=== PATIENT | male | born 1950 | race Caucasian/White ===

== ENCOUNTER 2018-11-20 08:24 | Outpatient (CLI) | payer MEDICARE ==
--- NOTE | 2018-11-20 09:29 | MRI ---
MRI Lumbar Spine Noncontrast: HISTORY: Low back pain after lifting weights 5 weeks ago. COMPARISON: None FINDINGS: The visualized retroperitoneal structures demonstrate a normal appearance. Conus medullaris is normal in morphology and terminates at the L1-2 level. A few scattered Schmorl's nodes are seen within the lumbar spine. L1-2: There is no disc bulge or disc herniation. Central spinal canal and neural foramina are patent. Minimal endplate degenerative changes are present involving the inferior endplate L1 vertebral body. L2-3: There is no disc bulge or disc herniation. Central spinal canal and neural foramina are patent. L3-4: There is no disc bulge or disc herniation. Central spinal canal and neural foramina are patent. L4-5: There is mild disc osteophyte complex without significant narrowing of the central spinal canal . There is slight flattening the anterior aspect of the thecal sac. Neural foramina are patent. Mild facet degenerative changes are noted. L5-S1: There is a mild central/left paracentral disc protrusion which does result in mild flattening of the anterior aspect of the thecal sac with encroachment on the traversing left S1 nerve root. The neural foramina are patent. Facet degenerative changes are present. IMPRESSION: Minimal disc degenerative changes in the lower lumbar spine.
== END 2018-11-20 08:25 | disposition home or self-care (01) ==
LOC: SCSMRI 08:24
PROVIDERS: ATTEND Surgery
DX: M54.5 Low back pain (principal); M51.36 Other intervertebral disc degeneration, lumbar region
CPT/HCPCS: 72148

== ENCOUNTER 2018-12-05 10:07 | Day surgery (SDC) | payer MEDICARE ==
[2018-12-04 11:01] VITALS: BMI 29.4
[2018-12-05] MEDS ORDERED: Bupivacaine/Epinephrine 0.25% 30 ML VIAL ONE (10:41)
[2018-12-05] MEDS ORDERED: Lidocaine 2% Jelly 5 ML TUBE ONE (10:41)
[2018-12-05] MEDS ORDERED: Fentanyl 100 MCG/2 ML VIAL ONE (10:41)
[2018-12-05] MEDS ORDERED: Midazolam HCl 2 mg/2 ml Vial ONE (10:42)
--- NOTE | 2018-12-05 12:36 | OP ---
DATE OF PROCEDURE: 12/05/2018 PREOPERATIVE DIAGNOSIS: Umbilical hernia. PROCEDURE PERFORMED: Umbilical hernia repair. INDICATIONS: A 68-year-old male, who has an enlarging bulge in his umbilicus causing pain. FINDINGS: Less than 1 cm defect closed primarily without mesh. DESCRIPTION OF PROCEDURE: After informed consent was obtained, the patient was taken to the operating room and given general mask anesthesia placed in the supine position. Abdomen was prepped and draped in usual fashion. Local anesthesia infiltrated subcutaneously and deep. A subumbilical incision was performed. Subcu divided sharply. The hernia sac was dissected from overlying skin sharply with Metzenbaum scissors, then dissected out circumferentially. The hernia sac removed. The contents were reduced, after hemostasis achieved. The defect was approximately 1 cm, was closed with interrupted [id number] of 0 Ethibond suture, then the skin was reapproximated to the fascia with interrupted 3-0 Vicryl suture to restore umbilical contour. Then, the skin closed with interrupted 4-0 Rapide. Steri-Strips applied. Sterile bandage applied. The patient tolerated the procedure well, transferred to Recovery in good condition. Sponge and needle count verified correct x2. Job ID: [id number]
[2018-12-05] MEDS ORDERED: HYDROcodone/Acetaminophen 5/325 mg Tablet ONE (12:51)
--- NOTE | 2018-12-08 16:47 | EKG ---
Test Reason : PREOP Blood Pressure : / mmHG Vent. Rate : 062 BPM Atrial Rate : 062 BPM P-R Int : 162 ms QRS Dur : 088 ms QT Int : 422 ms P-R-T Axes : 030 067 032 degrees QTc Int : 428 ms Normal sinus rhythm ST elevation, consider early repolarization Otherwise normal ECG Confirmed by HALLIE HAYWARD ([id number]) on 12/08/2018 4:47:14 PM Referred By: NELIDA Confirmed By:HALLIE HAYWARD
== END 2018-12-05 13:30 | disposition home or self-care (01) ==
LOC: SDC 10:07
PROVIDERS: ATTEND Surgery
PROC: 0WQF0ZZ Repair Abdominal Wall, Open Approach (ICD-10-PCS; principal; 2018-12-05)
DX: K42.9 Umbilical hernia without obstruction or gangrene (principal); Z79.84 Long term (current) use of oral hypoglycemic drugs; Z79.899 Other long term (current) drug therapy
CPT/HCPCS: 93005; 93010; J0690; J2250; J3010